=== PATIENT | female | born 1975 | race Hispanic/Latino ===

== ENCOUNTER 2024-10-10 23:36 | Inpatient (IN) | payer OTHER, SELFPAY ==
[2024-10-10 18:46] VITALS: BP 205/153
[2024-10-10 18:47] VITALS: BMI 26.7
[2024-10-10 18:48] VITALS: BP 205/153
[2024-10-10] MEDS: ATIVAN 2 MG IM (19:22)
--- NOTE | 2024-10-10 19:22 | ED.GENMED ---
History of Present Illness
General
Chief Complaint: Withdrawal Symptoms
Source: patient
Exam Limitations: none
Time Seen by Provider: 10/10/24 18:54
Nursing documentation reviewed up to this point in time: agreed with
History of Present Illness
History of Present Illness:
48-year-old female with history of opioid abuse presents to the ER with police for evaluation of opioid withdrawal. Patient says 'I am dope sick.' She is extremely restless, retching. She says that she has been nauseous and vomiting, body aches,
headache, tremulous, diaphoretic. She last used opioids this morning�she says that she used heroin and that she smoked it. She thinks there may have been fentanyl or trying mixed in. She says she does not use IV drugs.
Review of Systems
Review of Systems
All Other Systems: ROS reviewed and negative except as documented in HPI and ROS
Constitutional: Reports fatigue and chills; Denies fever
EENT: Reports tearing
Respiratory: Denies cough
Cardiac: Reports diaphoresis; Denies chest pain
ABD/GI: Reports abdominal pain, nausea and vomiting
: Denies flank pain
Musculoskeletal: Reports muscle pain
Neurological: Reports headache
Psychiatric: Reports anxiety
Phy Exam
Physical Exam
Physical Exam:
General: Awake, alert, restless in the bed, moaning and screaming
Head: Normocephalic, atraumatic
Eyes: Conjunctiva normal, pupils dilated and briskly reactive to light bilaterally
Throat: Airway intact, moist mucous membranes
Neck: Trachea midline, supple without meningismus
Lungs: Clear to auscultation bilaterally, no wheezing, rales, rhonchi
Heart: Tachycardia with regular rhythm, no murmurs, gallops, or rubs
Abd: Soft, non distended, diffusely tender mildly
Skin: Profuse diaphoresis
Extremities: No edema in extremities, warm and well-perfused
Scores
COW Clinical Opiate Withdrawal Scale
Resting Pulse Rate: 81-100
Sweating-over past 30min not from room temp or activity: Sweat streaming off face
Restlessness-observation during assessment: Unable to sit still for more than a few seconds
Pupil Size: Pupils moderately dilated
Bone or Joint Aches: Patient reports severe diffuse aching of joints/muscles
Runny Nose or Tearing-not accounted for by cold/allergies: Nasal stuffiness or unusually moist eyes
GI Upset-over last 30min: Multiple episodes of diarrhea or vomiting
Tremor-observation of outstretched hands: Gross tremor or muscle twitching
Yawning-observation during assessment: No yawning
Anxiety or Irritability: Pt so irritable/anxious that participation in assessment is difficult
Gooseflesh Skin: Piloerrection of skin can be felt or hairs standing up on arms
Score: 31
Withdrawal Severity: Moderately Severe Withdrawal, consider starting Suboxone
Heart Failure Risk
Heart Failure Risk Score: Not Applicable
Heart Score for Chest Pain Patients
STEMI patient?: Not applicable
Withdrawal Assessment of Alcohol
Withdrawal Assessment Completed?: Not applicable
Course
Orders/Labs/Results
Orders:
Orders
10/10/24 18:56
Electrocardiogram (*1) Urgent
Reason for Study: QTc Monitoring
EKG- Treatment ONCE
Acetaminophen [Tylenol] 1,000 mg PO NOW STA
Clonidine [Catapres] 0.1 mg PO NOW STA
Ketorolac [Toradol] 10 mg IV NOW STA
Lorazepam [Ativan] 2 mg IV NOW STA
Ondansetron Injectable [Zofran] 4 mg IV NOW STA
Test Result ONCE
10/10/24 18:57
0.9% Sodium Chloride 1000 ml [Nss] 1,000 ml IV BOLUS
10/10/24 19:20
Lorazepam [Ativan] 2 mg IM NOW STA
Ondansetron Orally Disint [Zofran Odt (Orally Disintegrating)] 4 mg PO NOW STA
10/10/24 19:21
Olanzapine [Zyprexa] 5 mg IM NOW STA
10/10/24 19:31
Buprenorphine HCl [Belbuca] 300 mcg BUCCAL ONCE ONE
10/10/24 19:42
Sterile Water [Sterile Water For Injection] 10 ml .ROUTE .STK-MED ONE
10/10/24 20:44
Alcohol Urgent
CPK [Creatine Phosphokinase] Urgent
Complete Blood Count/With Diff Urgent
Comprehensive Metabolic Panel Urgent
Drug Screen, Urine [Urine Drug Abuse Screen] Urgent
Date Specimen was Collected: 10/10/24
Time Specimen was Collected: 19:14
Fentanyl, Urine Urgent
HCG, Serum Qualitative Screen Urgent
Abnormal Lab Results
10/10/24
20:44
MCV 79.8 L fL
(81.0-99.0)
MCH 26.3 L pg
(27.0-31.0)
MCHC 32.9 L g/dL
(33.0-37.0)
RDW 15.3 H %
(11.5-14.5)
Absolute Neuts (auto) 7.9 H 10^3/uL
(1.4-6.5)
Neutrophils % 81.0 H %
(42.2-75.2)
Lymphocytes % 13.7 L %
(20.5-51.1)
Chloride 108 H mmol/L
(98-107)
Glucose 139 H mg/dl
(70-99)
Urine Fentanyl Screen Positive H
(Negative)
Ur Amphetamines Screen Positive H
(Negative)
U Methamphetamines Scrn Positive H
(Negative)
Urine Cocaine Screen Positive H
(Negative)
10/10/24 20:44
10/10/24 20:44
Vital Signs
Initial and Last Documented VS:
Initial Vital Signs
Temp Pulse Resp BP Pulse Ox
36.9 C 71 20 205/153 99
10/10/24 18:46 10/10/24 18:46 10/10/24 18:46 10/10/24 18:46 10/10/24 18:46
Last Documented Vital Signs
Temp Pulse Resp BP Pulse Ox
36.9 C 84 24 194/162 98
10/10/24 18:46 10/10/24 21:00 10/10/24 21:00 10/10/24 21:29 10/10/24 19:31
Procedures
IV Access
Indication: Emergent access required, RN unable to obtain and Physician skill needed
Performed by:: Bhanu Brown MD
Site:: left upper arm
Gauge:: 20G
Ultrasound Guidance: Yes
MDM/Problems Addressed
Differential Diagnosis Includes:
Opioid withdrawal
MDM/Problems Addressed:
48-year-old female with history of opioid use presents in acute opioid withdrawal. She is tachycardic, heart rate 70-100 (during my assessment heart rate in the 90s). Mild tachypnea. Rest of vitals normal. Physical exam as noted. She says last
opioid use was earlier today. Patient unable to sit still long enough to even attempt an IV�nurse tried multiple times unsuccessfully. Will plan to dose with IM and oral meds as able. Supplement with IV meds when able to establish IV access.
Will send usual labs, UDS. EKG for QTc monitoring. Fluids. Will microdose Suboxone to avoid precipitated withdrawal.
Symptoms better controlled with treatment here but still hypertensive and still having significant withdrawal symptoms I think she needs admission for management of severe opioid withdrawal. I did review her labs and there were no clinically
significant abnormalities. Case was discussed with hospitalist for admission.
*Pulse Oximetry
SaO2: 98
Oxygen Mode of Delivery: Room air
Patient hypoxic: no (98%)
*EKG
Interpreted by ED Provider?: Yes
Heart Rate: 61
Rate: normal
Rhythm: sinus
Hebo: normal axis
Interval: normal interval
QRS Pattern: normal QRS
Ischemia: no ischemia
*Critical Care Note
Total Time (30-74mins, 75-104mins- exclusive of procedures): Not Applicable
Data Reviewed
Source: patient and police
Patient Management
Discussion with other providers: Hospitalist (Discussed with hospitalist)
Escalation/DeEscalation of care consider admission/obs:
Admission indicated
ED Attending Note
-
Portions of this chart may have been created with voice recognition software.� Occasional wrong word or��sound alike� substitutions may have occurred due to the inherent limitations of voice recognition software.
Discharge Plan
Departure
Patient Disposition: Admit
Date of Disposition: 10/10/24
Time of Disposition: 22:39
Admit to doctor: Eda
Presentation/result/management discussed w/ accepting MD/DO: Hospitalist
Discharge Problem:
Acute opioid withdrawal
Referrals:
[facility] [Family Provider, General]
Interventions
Interventions:
*Risk Screen - Suicide Last Done: 10/10/24 18:46
*General Assessment Last Done: 10/10/24 18:44
*Neglect/Abuse Screening Last Done: 10/10/24 18:46
*ED- Fall Risk Assessment Last Done: 10/10/24 18:47
*ED COVID-19 Vaccine History Last Done: 10/10/24 18:47
ED- Neurological Assessment Last Done: 10/10/24 18:49
ED-Psychological Assessment Last Done: 10/10/24 18:49
Discharge Date and Time
Print Language: OCCITAN
[2024-10-10] MEDS: ZOFRAN ODT (ORALLY DISINTEGRATING) 4 MG PO (19:25)
[2024-10-10] MEDS: BELBUCA 300 MCG BUCCAL (19:45)
[2024-10-10] MEDS: ZYPREXA 5 MG IM (19:49)
[2024-10-10] MEDS: TORADOL 10 MG IV (20:47)
[2024-10-10] MEDS: NSS 1000 IV (20:47)
[2024-10-10 20:50] LABS: Hematocrit 39.2 % (37.0-47.0); Hemoglobin 12.9 g/dL (12.0-16.0); Mean Corp Hgb Conc. 32.9 g/dL (33.0-37.0); Mean Corpuscular Volume 79.8 fL (81.0-99.0); Nucleated Red Blood Cells % 0 %; Platelet Count 349 10^3/uL (130-400); Red Cell Dist. Width 15.3 % (11.5-14.5)
[2024-10-10 21:03] LABS: HCG, Serum Qualitative Screen Negative
[2024-10-10 21:10] LABS: ALT (SGPT) 22 U/L (0-35); AST (SGOT) 28 U/L (14-36); Albumin 4.3 g/dl (3.5-5.0); Alkaline Phosphatase 96 U/L (38-126); Blood Urea Nitrogen 11 mg/dl (7-17); Calcium 9.4 mg/dl (8.4-10.2); Carbon Dioxide 25 mmol/L (22-30); Chloride 108 mmol/L (98-107); Estimated Creatinine Clearance 92 ml/min; Glucose 139 mg/dl (70-99); Potassium 4.0 mmol/L (3.5-5.1); Sodium 140 mmol/L (135-145); Total Protein 8.2 g/dl (6.3-8.2); eGFR > 60.00
[2024-10-10 21:27] VITALS: BP 194/162
[2024-10-10 21:29] VITALS: BP 194/162
--- NOTE | 2024-10-10 22:50 | HPS.HSE ---
Family Physician
-
Family Physician: Facility [facility]
Chief Complaint
-
Opioid withdrawal
History of Present Illness
48-year-old female with history of opioid abuse and dependence presenting to the emergency department from incarceration with evaluation for opioid withdrawal.
Patient reported at last use of opioids was this morning. She states that she used heroin and that she smokes weed. She also thinks that there may be fentanyl mixed with it. She denies any other IV drug use. She denies trunk.
She states she has been extremely restless and retching. She reports abdominal pain and nausea and vomiting. Reports body aches headache tremulousness and diaphoresis. She denies any diarrhea. She denies any fevers or chills. She denies prior
episodes of opioid withdrawal. She denies any alcohol use.
In the emergency department she was afebrile, blood pressure was elevated at 190 systolic with a pulse in the 80s. She was satting 98% on room air and a temp of 98.4. ECG showed normal sinus rhythm at rate of 61. CBC was unremarkable.
Electrolytes were all within the normal range.
Medical History
Past Medical History
Past Medical History: Reports Other (Substance dependence,, opioids)
Past Surgical History: Reports None
Social History
Tobacco: Smoker
Alcohol: None
Drug: Narcotics
Personal: Single
Living: Alone
Family History
Family History: Not pertinent
Allergies / Home Medications
Allergies reflects when Allergies were last updated in [facility].
Home Medications with original date entered in [facility]
Allergy/Medication List:
Allergies
Allergy/AdvReac Type Severity Reaction Status Date / Time
No Known Allergies Allergy Verified 10/10/24 19:03
No known home medications
Review of Systems
-
Constitutional: Reports No Symptoms
EENT: Reports No Symptoms
Respiratory: Reports No Symptoms
Cardiac: Reports No Symptoms
Abdomen/GI: Reports Abdominal Pain, Nausea and Vomiting
: Reports No Symptoms
Musculoskeletal: Reports No Symptoms
Skin: Reports No Symptoms
Neurological: Reports No Symptoms
Endocrine: Reports No Symptoms
Hematologic/Lymphatic: Reports No Symptoms
Psych: Reports No Symptoms
Physical Exam
Vital Signs
Vital Signs
Temp Pulse Resp BP Pulse Ox
98.4 F 84 24 194/162 98
10/10/24 18:46 10/10/24 21:00 10/10/24 21:00 10/10/24 21:29 10/10/24 19:31
Physical Exam
General: Well Developed, Well Nourished and No Apparent Distress
HEENT: NormoCephalic, Moist mucous membranes and Atraumatic
Respiratory: Clear
Cardiac: S1/S2 and Regular Rhythm; No Murmur or Rub
GI: Soft, Non Tender, Non Distended and Normal Bowel Sounds; No Organomegaly
Rectal: Deferred by Provider
Musculoskeletal: No Clubbing, No Cyanosis and No Edema
Skin: No Rash
Neuro: Nonfocal/grossly intact
Laboratory Results
-
10/10/24 20:44
10/10/24 20:44
Laboratory Results
Total Bilirubin 0.8 mg/dl (0.2-1.3) 10/10/24 20:44
AST 28 U/L (14-36) 10/10/24 20:44
ALT 22 U/L (0-35) 10/10/24 20:44
Alkaline Phosphatase 96 U/L (38-126) 10/10/24 20:44
Data Reviewed
-
Medical Tests (Nuc Med, Echo, EKG etc): Image Personally Visualized and interpreted
Lab Data: Labs Reviewed by me
Old Records: Reviewed
Impression/Plan
-
IMPRESSION:
Acute opioid withdrawal, last use < 72 hours. Patient being admitted due to opiate withdrawal. She is neurologically intact at this time and having symptoms of acute withdrawal.
PLAN:
Acute opiate withdrawal
-Admit to MedSurg
-Start the buprenorphine withdrawal protocol with COWS
-Adjunctive clonidine, Zofran, ativan and atarax
- no warm hand off as patient not interested in rehab
- uds pending
- iv fluids
- DVT PPX
- full code
[2024-10-11 01:30] VITALS: BP 174/119
--- NOTE | 2024-10-11 01:30 | PTCARENOTE ---
Patient arrived to 331 from ED via stretcher, appears to be drowsy/lethargic, refusing to open eyes to conversation. Refusing to ambulated or stand, pulled from stretcher to bed with assist of 3 person. Patient saturated in urine, grossly
incontinent, malodorous urine. Patient moaning with movement, saying 'stop it, stop it.' Vitals and weight obtained, soap and water bed bath provided, linens and gown changed. Patient arrived to unit with purwick at bedside, per PCT in ED patient
had been connected to purwick while downstairs. New purwick set up provided and connected to patient. Guards at bedside. COWS protocol score 23, previously scored 31 per ED physician. Orders clarified with POLO Sierra for Subutex -- dose provided
to patient, see MAR. Patient remains restless and moving about the bed constantly, purwick unable to be used appropriately and removed. IVFs initiated per orders. Will continue to monitor.
[2024-10-11] MEDS: TYLENOL 1000 MG PO ×3 (02:20→16:31)
[2024-10-11] MEDS: SUBUTEX 8 MG SL ×3 (02:20→21:35)
[2024-10-11] MEDS: CATAPRES 0.1 MG PO ×2 (02:29→21:35)
[2024-10-11] MEDS: D5LR 1000 IV ×2 (02:50→13:09)
[2024-10-11 06:00] VITALS: BMI 25.5
[2024-10-11] MEDS: ATIVAN 2 MG IV ×2 (09:00→14:12)
[2024-10-11 09:18] VITALS: BP 178/22
[2024-10-11 10:07] LABS: ALT (SGPT) 22 U/L (0-35); AST (SGOT) 33 U/L (14-36); Albumin 4.7 g/dl (3.5-5.0); Alkaline Phosphatase 127 U/L (38-126); Total Protein 9.1 g/dl (6.3-8.2)
--- NOTE | 2024-10-11 11:48 | W.PN.HOSP.TC ---
Today's Communication/Plan
-
Assessment / Plan
Assessment / Plan
General: Appears significantly uncomfortable due to acute opioid withdrawal
HEENT: NormoCephalic, Moist mucous membranes, Atraumatic
Respiratory: Clear and Non Labored Respirations
Cardiac: S1/S2 and Regular Rhythm; tachycardic
GI: Soft, Non Tender, Non Distended and Normal Bowel Sounds
Musculoskeletal: No Edema, no deformity
Skin: Warm and dry
: NO Kaye
Neuro: Awake, Alert, Nonfocal/grossly intact
Psych: Anxious, cooperative
Ms. Patterson is a 48-year-old incarcerated female with a medical history of opiate abuse (smokes heroin and weed) who presented with acute opiate withdrawal symptoms. She was started on Suboxone protocol and admitted for further evaluation and
management. Her last use of opiates was the morning on the day of presentation.
Acute opiate withdrawal:
- Continue buprenorphine withdrawal protocol
- Supportive care with Ativan, Atarax, clonidine clonidine Zofran as needed
- Patient not currently interested in rehab, no warm handoff indicated at this point
- Urine drug screen positive for amphetamines, fentanyl, and cocaine, surprisingly negative for marijuana
- IV fluids
- Diet as tolerated
DVT prophylaxis: Lovenox
CODE STATUS: Full code
Total time spent on today's encounter was 35 minutes
Anticipated Discharge: 24 - 48 hours
Subjective/Interval History
-
Date of Service: October 11, 2024
Patient was seen and examined at bedside this morning. In the enforcement custody. Going through acute opiate withdrawal. Suboxone protocol initiated.
Objective Data
-
Labs:
Laboratory Results
10/11/24
09:21
Total Bilirubin 1.0
AST 33
ALT 22
Alkaline Phosphatase 127 H
Vital Signs:
Vital Signs
Temp Pulse Resp BP Pulse Ox
98.6 F 95 18 178/22 99
10/11/24 09:18 10/11/24 09:18 10/11/24 09:18 10/11/24 09:18 10/11/24 02:00
I&O
10/10/24 10/11/24 10/12/24
06:59 06:59 06:59
Intake Total 0 / 0
Balance 0 / 0
Review of Systems
-
History Source: Patient
Constitutional: Reports Chills
Abdomen/GI: Reports Abdominal Pain
Musculoskeletal: Reports Myalgias
Psych: Reports Anxious
Physical Exam
-
General: Other (Signs of acute opiate withdrawal )
[2024-10-11] MEDS: NSS (PRESERVATIVE FREE) 1 ML IV (14:12)
[2024-10-11 16:07] VITALS: BP 159/125
[2024-10-11 19:00] VITALS: BP 194/101
[2024-10-11] MEDS: ZOFRAN 4 MG IV (21:35)
[2024-10-11] MEDS: LOVENOX 40 MG SC (21:36)
--- NOTE | 2024-10-11 22:01 | PTCARENOTE ---
Addendum entered by Debby Joaquin RN 10/11/24 22:19:
No-no placed on left arm to aid in IVF infusion. Unable to elevate right arm to assist with infiltrate as patient refuses to keep arm on pillow.
Original Note:
Assumed care of patient from previous RN. Patient with eyes closed, moaning, able to verbalize needing to void -- placed on bedpan and able to go appropriately so far this shift. Patient with D5LR infusing, evaluated IV site to find infiltrate of
IVFs, fluids paused and VAT team notified while on unit for new site. New site placed to LAC. Zofran provided to patient, along with one time dose 8mg Subutex following discussion with [employer] TECHNICIAN Felipe Gurrola and pharmacy for dosing. COWS score 19. PRN
Clonidine provided at this time - see MAR. Urine still very malodorous and cloudy -- will discuss with [employer] TECHNICIAN need for further evaluation. Guards changed shift, at bedside at this time x2. Will monitor.
[2024-10-11 23:00] VITALS: BP 205/144
[2024-10-12] MEDS: TYLENOL PO ×3 (00:36→10:24)
[2024-10-12] MEDS: ATARAX 50 MG PO (00:36)
[2024-10-12] MEDS: SUBUTEX 4 MG SL ×2 (00:36→21:43)
[2024-10-12 01:41] LABS: Urine Character Cloudy (Clear)
[2024-10-12 02:16] LABS: Urine Red Blood Cell 0-2 /HPF (0-2); Urine Squamous Cell >30 /LPF (Few)
[2024-10-12 02:17] LABS: Urine White Cell 40-50 /HPF (0-5)
[2024-10-12 03:00] VITALS: BP 198/129
[2024-10-12] MEDS: D5LR 1000 IV (03:43)
[2024-10-12] MEDS: ATIVAN 2 MG IV (08:37)
[2024-10-12] MEDS: CATAPRES PO (08:38)
[2024-10-12 08:44] VITALS: BP 230/132
[2024-10-12] MEDS: ROCEPHIN 1000 MG IV (10:00)
[2024-10-12] MEDS: STERILE WATER FOR INJECTION 10 ML IV (10:01)
[2024-10-12] MEDS: OXYCONTIN (CONTROLLED RELEASE) PO ×2 (10:05→10:23)
[2024-10-12] MEDS: TRANDATE 10 MG IV ×3 (10:06→23:07)
[2024-10-12 11:30] VITALS: BP 189/117
[2024-10-12] MEDS: TYLENOL 1000 MG PO ×2 (15:50→23:07)
[2024-10-12] MEDS: OXYCONTIN (CONTROLLED RELEASE) 40 MG PO ×2 (15:50→23:07)
[2024-10-12] MEDS: SUBUTEX SL ×2 (16:00→18:29)
--- NOTE | 2024-10-12 16:04 | W.PN.HOSP.TC ---
Today's Communication/Plan
-
Assessment / Plan
Assessment / Plan
General: Somnolent but arousable
HEENT: NormoCephalic, Moist mucous membranes, Atraumatic
Respiratory: Clear and Non Labored Respirations
Cardiac: S1/S2 and Regular Rhythm; tachycardic
GI: Soft, Non Tender, Non Distended and Normal Bowel Sounds
Musculoskeletal: No Edema, no deformity
Skin: Warm and dry
: NO Kaye
Neuro: Somnolent but arousable, no tremor
Psych: Calm, cooperative
Ms. Patterson is a 48-year-old incarcerated female with a medical history of opiate abuse (smokes heroin and weed) who presented with acute opiate withdrawal symptoms. She was started on Suboxone protocol and admitted for further evaluation and
management. Her last use of opiates was the morning on the day of presentation.
Acute opiate withdrawal:
- Continue buprenorphine withdrawal protocol
- Supportive care with Ativan, Atarax, clonidine clonidine Zofran as needed
- Patient not currently interested in rehab, no warm handoff indicated at this point
- Urine drug screen positive for amphetamines, fentanyl, and cocaine, surprisingly negative for marijuana
- Diet as tolerated
Hypertensive urgency:
- Significantly hypertensive this morning with SBP around 200
- Giving IV labetalol scheduled since she is not tolerating p.o., additional as needed for SBP greater than 170
- Transition to oral regimen as able
- Continue treatment for underlying opiate withdrawal which is likely driving her hypertension
Urinary tract infection:
- Experiencing urinary frequency
- UA significant for pyuria and bacteriuria, culture pending
- Continue treatment with ceftriaxone pending culture results
DVT prophylaxis: Lovenox
CODE STATUS: Full code
Total time spent on today's encounter was 35 minutes
Anticipated Discharge: 24 - 48 hours
Subjective/Interval History
-
Date of Service: October 12, 2024
Patient was seen and examined at bedside this morning. Continues on Suboxone protocol for opiate withdrawal. Significantly hypertensive this morning.
Objective Data
-
Labs:
Laboratory Results
10/12/24
13:35
WBC Pending
Hgb Pending
Hct Pending
Plt Count Pending
Sodium Pending
Potassium Pending
Chloride Pending
Carbon Dioxide Pending
BUN Pending
Creatinine Pending
Glucose Pending
Calcium Pending
Vital Signs:
Vital Signs
Temp Pulse Resp BP Pulse Ox
98.1 F 83 16 201/114 98
10/12/24 11:30 10/12/24 15:51 10/12/24 11:30 10/12/24 15:51 10/12/24 11:30
I&O
10/11/24 10/12/24 10/13/24
06:59 06:59 06:59
Intake Total 0 / 0 1350 / 1350
Balance 0 / 0 1350 / 1350
Review of Systems
-
Unable to obtain full review of systems at this time due to: Acuity
History Source: Patient
Physical Exam
-
Neuro: Other (Somnolent, follows commands)
[2024-10-12] MEDS: D5LR IV (16:52)
[2024-10-12 17:52] LABS: Hematocrit 43.1 % (37.0-47.0); Hemoglobin 14.5 g/dL (12.0-16.0); Mean Corp Hgb Conc. 33.6 g/dL (33.0-37.0); Mean Corpuscular Volume 78.8 fL (81.0-99.0); Nucleated Red Blood Cells % 0 %; Platelet Count 347 10^3/uL (130-400); Red Cell Dist. Width 15.6 % (11.5-14.5)
[2024-10-12 18:05] LABS: Blood Urea Nitrogen 11 mg/dl (7-17); Calcium 9.2 mg/dl (8.4-10.2); Carbon Dioxide 25 mmol/L (22-30); Chloride 101 mmol/L (98-107); Estimated Creatinine Clearance 90 ml/min; Glucose 129 mg/dl (70-99); Potassium 3.6 mmol/L (3.5-5.1); Sodium 134 mmol/L (135-145); eGFR > 60.00
[2024-10-12] MEDS: LOVENOX 40 MG SC (18:25)
[2024-10-12] MEDS: NORVASC 5 MG PO (18:25)
[2024-10-12 19:45] VITALS: BP 168/115
[2024-10-12 23:06] VITALS: BP 209/112
[2024-10-13] MEDS: TRANDATE 10 MG IV ×2 (03:01→08:39)
[2024-10-13 03:03] VITALS: BP 195/110
[2024-10-13] MEDS: ZOFRAN 4 MG IV (03:46)
[2024-10-13 07:35] VITALS: BP 196/111
[2024-10-13] MEDS: NORVASC 5 MG PO (08:34)
[2024-10-13] MEDS: OXYCONTIN (CONTROLLED RELEASE) 40 MG PO ×2 (08:34→16:13)
[2024-10-13] MEDS: SUBUTEX 8 MG SL ×2 (08:35→20:38)
[2024-10-13] MEDS: TYLENOL 1000 MG PO ×2 (08:36→16:14)
[2024-10-13] MEDS: STERILE WATER FOR INJECTION 10 ML IV (10:38)
[2024-10-13] MEDS: ROCEPHIN 1000 MG IV (10:38)
[2024-10-13 11:29] VITALS: BP 157/101
[2024-10-13] MEDS: COZAAR 50 MG PO (12:32)
--- NOTE | 2024-10-13 12:52 | W.PN.HOSP.TC ---
Today's Communication/Plan
-
TTE
adjust BP meds
continue opioid withdrawal protocol
possible d/c tomorrow
Assessment / Plan
Assessment / Plan
Ms. Patterson is a 48-year-old incarcerated female with a medical history of opiate abuse (smokes heroin and weed) who presented with acute opiate withdrawal symptoms. She was started on Suboxone protocol and admitted for further evaluation and
management. Her last use of opiates was the morning on the day of presentation.
Acute opiate withdrawal:
- Continue buprenorphine withdrawal protocol
- Supportive care with Ativan, Atarax, clonidine clonidine Zofran as needed
- Patient is somnolent although waking up and coherent
- COWS score reviewed and improving
Polysubstance use
- Urine drug screen positive for cocaine/methamphetamine/Fentabyl
- Patient has been prescribed buprenorphine/naloxone 8/2 mg [id number] daily by drug rehab physician
Hypertensive urgency:
Uncontrolled hypertension
- Significantly hypertensive this morning with SBP around 200
- Added losartan 50mg/d for BP control
- On as needed labetalol as well
- TTE ordered to r/o any cardiac issues although high BP likely from cocaine/meth use
Urinary tract infection:
- Experiencing urinary frequency
- UA significant for pyuria and bacteriuria
- Urine culture growing 50K CFU Ecoli
- Continue treatment with ceftriaxone
DVT prophylaxis: Lovenox
CODE STATUS: Full code
Anticipated Discharge: Within 24 hours
Subjective/Interval History
-
Date of Service: October 13, 2024
Patient is somewhat somnolent today
denies having pain/nausea/diarrhea
afebrile
Objective Data
-
Vital Signs:
Vital Signs
Temp Pulse Resp BP Pulse Ox
97.9 F 94 16 157/101 98
10/13/24 11:29 10/13/24 11:29 10/13/24 11:29 10/13/24 11:29 10/13/24 11:29
I&O
10/12/24 10/13/24 10/14/24
06:59 06:59 06:59
Intake Total 1350 / 1350 940 / 940
Balance 1350 / 1350 940 / 940
Review of Systems
-
Respiratory: Reports No Symptoms
Cardiac: Reports No Symptoms
Abdomen/GI: Reports No Symptoms
Physical Exam
-
HEENT: Negative Oxygen
Cardiac: Regular Rhythm and S1/S2; Negative Murmur
Neuro: No Motor Deficits and Sedated
[2024-10-13 14:15] LABS: Hematocrit 48.1 % (37.0-47.0); Hemoglobin 15.6 g/dL (12.0-16.0); Mean Corp Hgb Conc. 32.4 g/dL (33.0-37.0); Mean Corpuscular Volume 80.8 fL (81.0-99.0); Nucleated Red Blood Cells % 0 %; Platelet Count 314 10^3/uL (130-400); Red Cell Dist. Width 16.1 % (11.5-14.5)
[2024-10-13 14:40] LABS: Blood Urea Nitrogen 12 mg/dl (7-17); Calcium 9.3 mg/dl (8.4-10.2); Carbon Dioxide 30 mmol/L (22-30); Chloride 100 mmol/L (98-107); Estimated Creatinine Clearance 77 ml/min; Glucose 111 mg/dl (70-99); Potassium 4.0 mmol/L (3.5-5.1); Sodium 135 mmol/L (135-145); eGFR > 60.00
[2024-10-13 15:19] VITALS: BP 172/99
[2024-10-13] MEDS: LOVENOX 40 MG SC (18:33)
[2024-10-13 19:49] VITALS: BP 150/104
[2024-10-13 23:22] VITALS: BP 136/89
[2024-10-14] MEDS: TYLENOL 1000 MG PO ×2 (00:21→08:45)
--- NOTE | 2024-10-14 02:24 | DOWNTIME ---
There was a [employer] Supervisor Downtime on 10/14/2024 from 0100 to 10/14/2024 at 0220. Downtime documentation of patient's care, including medication administrations, has been reconciled in the electronic record per guidelines. Refer to the
patient's paper chart under the miscellaneous tab to see printed paper medication records and downtime forms.
[2024-10-14 03:24] VITALS: BP 171/125
[2024-10-14 07:00] VITALS: BP 141/100
[2024-10-14] MEDS: SUBUTEX 16 MG SL (08:45)
[2024-10-14] MEDS: COZAAR 50 MG PO (08:45)
[2024-10-14] MEDS: STERILE WATER FOR INJECTION 10 ML IV (09:34)
[2024-10-14] MEDS: ROCEPHIN 1000 MG IV (09:34)
[2024-10-14 11:00] VITALS: BP 134/91
--- NOTE | 2024-10-14 12:50 | CM ---
Pt transferred to [facility] from [facility] for cardiac med adjustments, opiod withdrawal protocol.
Plan: Return to [facility] via [facility] transport.
[facility] Report: [phone]
[facility]
[2024-10-14] MEDS: DULCOLAX 10 MG PO (13:27)
[2024-10-14 13:28] LABS: Hematocrit 46.8 % (37.0-47.0); Hemoglobin 15.4 g/dL (12.0-16.0); Mean Corp Hgb Conc. 32.9 g/dL (33.0-37.0); Mean Corpuscular Volume 79.6 fL (81.0-99.0); Nucleated Red Blood Cells % 0 %; Platelet Count 303 10^3/uL (130-400); Red Cell Dist. Width 17.2 % (11.5-14.5)
[2024-10-14 13:51] LABS: Blood Urea Nitrogen 19 mg/dl (7-17); Calcium 9.5 mg/dl (8.4-10.2); Carbon Dioxide 26 mmol/L (22-30); Chloride 104 mmol/L (98-107); Estimated Creatinine Clearance 90 ml/min; Glucose 111 mg/dl (70-99); Potassium 4.1 mmol/L (3.5-5.1); Sodium 136 mmol/L (135-145); eGFR > 60.00
--- NOTE | 2024-10-14 14:12 | W.PN.HOSP.TC ---
Today's Communication/Plan
-
d/c to correction facility
Assessment / Plan
Assessment / Plan
Ms. Patterson is a 48-year-old incarcerated female with a medical history of opiate abuse (smokes heroin and weed) who presented with acute opiate withdrawal symptoms. She was started on Suboxone protocol and admitted for further evaluation and
management. Her last use of opiates was the morning on the day of presentation.
Acute opiate withdrawal:
- Continue buprenorphine withdrawal protocol
- Supportive care with Ativan, Atarax, clonidine clonidine Zofran as needed
- COWS score reviewed and patient is out of withdrawal window
- patient was on Suboxone/naloxone 8/2mg x3 films/daily, can be continued on this if [facility] able to provide at [facility] facility ,PDMP reviewed.
Polysubstance use
- Urine drug screen positive for cocaine/methamphetamine/Fentanyl
- Patient has been prescribed buprenorphine/naloxone 8/2 mg [id number] daily by drug rehab physician
Hypertensive urgency:
Uncontrolled hypertension
- Significantly hypertensive this morning with SBP around 200
- Added losartan 50mg/d for BP control, BP better improved.
- On as needed labetalol as well
- TTE normal.
Urinary tract infection:
- Experiencing urinary frequency
- UA significant for pyuria and bacteriuria
- Urine culture growing 50K CFU Ecoli
- Continue treatment with ceftriaxone
DVT prophylaxis: Lovenox
CODE STATUS: Full code
More than 30 minutes spent in discharge including
Final examination of the patient
Summarizing hospital stay
Instructions for continuing care to all relevant caregivers
Preparation of discharge records, prescriptions, and referral forms
Total time spent (in minutes): 39 mins
Anticipated Discharge: Today
Subjective/Interval History
-
Date of Service: October 14, 2024
remains fatigued, waking up on verbal cue
complains of constipation
Objective Data
-
Labs:
Laboratory Results
10/14/24
13:08
WBC 7.0
Hgb 15.4
Hct 46.8
Plt Count 303
Sodium 136
Potassium 4.1
Chloride 104
Carbon Dioxide 26
BUN 19 H
Creatinine 0.6
Glucose 111 H
Calcium 9.5
Vital Signs:
Vital Signs
Temp Pulse Resp BP Pulse Ox
98.2 F 102 18 134/91 97
10/14/24 11:00 10/14/24 11:00 10/14/24 11:00 10/14/24 11:00 10/14/24 11:00
I&O
10/13/24 10/14/24 10/15/24
06:59 06:59 06:59
Intake Total 940 / 940 480 / 480
Balance 940 / 940 480 / 480
Review of Systems
-
Respiratory: Reports No Symptoms
Cardiac: Reports No Symptoms
Abdomen/GI: Reports Constipated; Denies Abdominal Pain or Nausea
Physical Exam
-
General: No Apparent Distress and Comfortable
HEENT: Negative Oxygen
Respiratory: Clear to Auscultation
Cardiac: Regular Rhythm and S1/S2; Negative Murmur or Rub
GI: Soft, Nontender and Nondistended
Musculoskeletal: No Edema
Neuro: Awake, Alert, Oriented, No Motor Deficits and Nonfocal/Grossly Intact
Psych: Calm
--- NOTE | 2024-10-16 15:15 | W.DCSUMMARY ---
Discharge Summary
Discharge Data
Date of Admission: 10/10/24
Date of Discharge: 10/14/24
-
Pending Results: No
Hospital Course
Discharging Physician : Dr Obi Gomez
Disposition : To home
Primary care physician : [facility]
Principal Discharge diagnosis :
Acute opiate withdrawal
Polysubstance use
Hypertensive urgency
Uncontrolled hypertension
Urinary tract infection
Chronic Discharge diagnosis :
Hospital Course :
Patient is a 48-year-old female with only past medical history was brought into ER by [facility] staff after patient was noted to having opioid withdrawal. Patient reportedly using heroin, no IV use. Urine drug screen was
positive for fentanyl/amphetamine/cocaine. Patient was started on opiate withdrawal protocol with buprenorphine. Patient had slow improvement of withdrawal symptoms. Patient was noted to be hypotensive as well with systolic blood pressure in
200s. Losartan was added for blood pressure control. Echocardiogram ruled out any underlying heart issues. Patient have also have questionable urinary tract infection for which patient was treated with Rocephin.
Important imaging findings :
None
Procedure findings :
None
Discharge Plan
-
Patient Disposition: Usp
Discharge Diagnosis/Procedures: Opioid withdrawal, Polysubstance use, Uncontrolled BP
Condition: Fair
Diet: Low Sodium
Activity: As tolerated
Driving Restrictions: As prior to admission
Bathing Restrictions: OK to Shower
Referrals:
[facility],Facility [Family Provider, General]
Prescriptions:
New
losartan 50 mg Tablet
50 mg PO DAILY Qty: 30 0RF
acetaminophen [Tylenol Extra Strength] 500 mg Tablet
1,000 mg PO Q8 PRN (Reason: Pain) Qty: 30 0RF
hydroxyzine HCl 25 mg Tablet
50 mg PO TIDPRN PRN (Reason: refractory anxiety) Qty: 30 0RF
buprenorphine-naloxone 8-2 mg film
3 film buccal Q24H Qty: 30 0RF
Rx Instructions:
PDMP REVIEWED - HOME MED
Discharge Orders:
Discharge Patient (As Directed); Ordered 10/14/24
Ordered By: Obi Gomez
Discharge Date and Time
Discharge Date/Time: 10/14/24 13:48
Print Language: [email or web address]
== END 2024-10-14 13:48 | DRG 897 ==
LOC: 3 WEST ACU 23:36
PROVIDERS: Internal Medicine; ADMITTING PHYSICIAN Internal Medicine; ATTENDING PHYSICIAN Hospitalist; EMERGENCY PHYSICIAN Emergency Medicine
DX: F11.23 Opioid dependence with withdrawal (principal); N39.0 Urinary tract infection, site not specified; I11.9 Hypertensive heart disease without heart failure; F17.200 Nicotine dependence, unspecified, uncomplicated; I16.0 Hypertensive urgency; B96.20 Unspecified Escherichia coli [E. coli] as the cause of diseases classified elsewhere; Z65.3 Problems related to other legal circumstances
CPT/HCPCS: 80048; 80053; 80076; 80306; 80307; 81003; 81015; 82077; 82550; 84703; 85025; 87070; 87077; 87086; 87186; 93005; 93306; 96361; 96372; 96374; 96375; 99285; J2358